=== PATIENT | female | born 1970 | race Caucasian/White ===

== ENCOUNTER 2016-04-24 19:46 | Emergency (ER) | payer MEDICAID ==
[~2016-04-24] VITALS: Ht 167.6 cm; Wt 64.4 kg
[2016-04-24 20:24] VITALS: BP 117/77
--- NOTE | 2016-04-24 21:32 | NUR ---
PT TAKEN TO [facility]
--- NOTE | 2016-04-24 21:38 | NUR ---
45Y/F PATIENT PRESENTS TO ED WITH CONCERN OF RT. TEMPORAL VEIN DISTEND . PT STATES CONCERN OF HER DISTENDED TEMPORAL VEINS, NOTICED RT.TEMPORAL VEIN DISTEND YESTERDAY. PATIENT DENIES ANY N/V/D OR PAIN AT THIS TIME. . DENIES N/V/D; SKIN IS PINK/WARM/DRY; AAOX4 WITH EVEN AND STEADY GAIT; LUNGS CLEAR BL; HR EVEN AND REGULAR; PT DENIES ANY FEVER, CP, SOB, OR COUGH AT THIS TIME; PATIENT STATES PAIN OF 0/10 AT THIS TIME; VSS; PATIENT POSITIONED FOR COMFORT; HOB ELEVATED; BEDRAILS UP X2; BED DOWN. ER MD MADE AWARE OF PT STATUS.
--- NOTE | 2016-04-24 21:52 | NUR ---
Dr. Bautista evaluating patient
[2016-04-24 22:29] VITALS: BP 120/78
--- NOTE | 2016-04-24 22:31 | NUR ---
Patient discharged with v/s stable. Written and verbal after care instructions given and explained. Patient verbalized understanding. Ambulatory with steady gait. All questions addressed prior to discharge. Advised to follow up with PMD.
== END 2016-04-24 22:31 | disposition home or self-care (01) ==
LOC: MED 19:46
DX: R51 Headache (principal)

== ENCOUNTER 2016-09-21 13:21 | Emergency (ER) | payer MEDICAID ==
[~2016-09-21] VITALS: Ht 160 cm; Wt 81.6 kg
[2016-09-21 13:51] VITALS: BP 116/75
--- NOTE | 2016-09-21 14:45 | NUR ---
PATIENT LEFT WITHOUT BEING SEEN BY DR. EATON. NO FURTHER CARE PROVIDED FOR PATIENT.
== END 2016-09-21 14:45 | disposition left against medical advice (07) ==
LOC: MED 13:21

== ENCOUNTER 2020-09-01 17:32 | Emergency (ER) | payer SELFPAY ==
[~2020-09-01] VITALS: Ht 160 cm; Wt 79.4 kg
[2020-09-01 18:00] VITALS: BP 126/77
--- NOTE | 2020-09-01 18:35 | NUR ---
50 YEAR OLD FEMALE COMPLAINS OF NOSEBLEEDING X 1 DAY. PT DENIES DIZZINESS. PT AOX4, BREATHING EVEN AND UNLABORED, SKIN WARM AND DRY. BED IN LOWEST POSITION, LOCKED, BED RAIL UPX1. PMH - DENIES ALLERGIES - NKA
[2020-09-01 19:03] VITALS: BP 126/77
--- NOTE | 2020-09-01 19:03 | NUR ---
Patient discharged with v/s stable. Written and verbal after care instructions about nosebleeds given and explained. Patient verbalized understanding. Ambulatory with steady gait. All questions addressed prior to discharge. Advised to follow up with PMD.
== END 2020-09-01 19:03 | disposition home or self-care (01) ==
LOC: MED 17:32
DX: R04.0 Epistaxis (principal)
CPT/HCPCS: 99281